=== PATIENT | female | born 1950 | race Caucasian/White ===

== ENCOUNTER 2016-04-14 16:39 | Inpatient (IN) | payer OTHER ==
[~2016-04-14] VITALS: Ht 170.2 cm; Wt 163.3 kg
[2016-04-14] MEDS ORDERED: HYDROmorphone HCL 2 MG/ML VL IV ONE (20:00)
[2016-04-14] MEDS ORDERED: ONDANSETRON HCL 4 MG/2 ML VIAL IV ONE (20:00)
[2016-04-14 21:30] LABS: Hemoglobin 13.7 g/dL (12.2-16.2); Mean Corpuscular Hemoglobin 30.7 pg (28.0-32.0); Mean Corpuscular Hgb Conc. 32.6 g/dL (32.0-36.0); Mean Corpuscular Volume 94.2 fL (80.0-100.0); Mean Platelet Volume 8.9 fL (7.4-10.4); Platelet Count (auto) 304 10^3/uL (140-450); Red Cell Distribution Width 13.9 % (11.6-16.0); SUSPECT VIEW TRANSMISSION; White Blood Cell 8.6 10^3/uL (4.4-10.8)
[2016-04-14 21:39] LABS: BUN/Creatinine Ratio 22.9; Calcium 9.1 mg/dL (8.5-10.1); Potassium 4.4 mmol/L (3.5-5.1)
[2016-04-14 21:41] LABS: INR 1.12 (0.9-1.15); Partial Thromboplastin Time 22.3 sec (22.64-33.71); Prothrombin Time 11.5 sec (9.37-12.3)
[2016-04-14 21:42] LABS: Bilirubin, Total 0.5 mg/dL (0.2-1.0); Total Protein 8.2 g/dL (6.4-8.2)
[2016-04-14 21:43] LABS: Metamyelocytes % 0; Myelocytes % 0; Promyelocytes % 0; Reactive Lymphocytes 0
[2016-04-14 21:46] LABS: B-Type Natriuretic Peptide 102.72 pg/mL (0-100)
[2016-04-14 21:47] LABS: Temperature: 22.7 C (20.0-25.0)
[2016-04-14 22:07] LABS: Platelet Estimate Adequate
[2016-04-14 22:08] LABS: Giant Platelets Few; Stomatocytes Few
[2016-04-14 22:18] LABS: Urine Bilirubin Negative (Negative); Urine Blood Negative /uL (Negative); Urine Color Yellow (Yellow); Urine Glucose Normal (Normal); Urine Hyaline Cast FEW /lpf (0 - 2); Urine Ketone Negative (Negative); Urine Mucus FEW (None Seen); Urine Nitrite Negative (Negative); Urine RBC 1 /hpf (0 - 4); Urine Squamous Epithelial Cell FEW /hpf (<5); Urine Urobilinogen Normal (Negative); Urine pH 5.5 (5.0-8.0)
[2016-04-14] MEDS ORDERED: IOHEXOL 350 MG/ML 100ML IJ ONE (23:00)
[2016-04-15] MEDS ORDERED: ACETAMINOPHEN 325 MG TAB PO PRN (01:15)
[2016-04-15] MEDS ORDERED: HYDROcodone-ACET 5/325MG TAB PO PRN (01:15)
[2016-04-15] MEDS ORDERED: ONDANSETRON HCL 4 MG/2 ML VIAL IV PRN (01:15)
[2016-04-15] MEDS ORDERED: ENOXAPARIN SOD 100 MG/1 ML SYRINGE SC ONE (01:15)
[2016-04-15] MEDS: MORPHINE SULF INJ 2 MG/ML SYRINGE 1ML IV PRN ×4 (01:41→16:02)
[2016-04-15 03:30] VITALS: BP 101/65
[2016-04-15] MEDS ORDERED: LEV25T GT (03:55)
[2016-04-15] MEDS ORDERED: FERR18TA2 PO (03:55)
[2016-04-15] MEDS ORDERED: MELO-41 PO (03:55)
[2016-04-15] MEDS ORDERED: DOCU-94 PO (03:55)
[2016-04-15] MEDS ORDERED: BUPRTAB PO (03:55)
[2016-04-15] MEDS ORDERED: HCTZ25T GT (03:55)
[2016-04-15] MEDS ORDERED: FAM20T PO (03:55)
[2016-04-15] MEDS ORDERED: VENL150C PO (03:55)
[2016-04-15 04:48] VITALS: BP 101/60
[2016-04-15] MEDS: buPROPion HCL 75 MG TAB PO SCH ×2 (06:32→18:19)
[2016-04-15] MEDS ORDERED: LEVOTHYROXINE SODIUM 25 MCG TAB PO SCH (07:00)
[2016-04-15 08:20] VITALS: BP 119/72
[2016-04-15] MEDS ORDERED: FAMOTIDINE 20 MG TAB PO SCH (10:00)
[2016-04-15] MEDS ORDERED: ENOXAPARIN SOD 40 MG/0.4 ML SYRINGE SC SCH (10:00)
[2016-04-15] MEDS ORDERED: HCTZ 25 MG TAB PO SCH (10:00)
[2016-04-15] MEDS ORDERED: amLODIPine BESYLATE 5 MG TAB PO SCH (10:00)
[2016-04-15 11:43] VITALS: BP 139/76
[2016-04-15 14:59] VITALS: BP 119/72
[2016-04-15 17:08] VITALS: BP 121/70
== END 2016-04-15 18:55 | DRG 689 ==
LOC: EDBD 16:39 → ER 16:43 → OVERFLOW 16:44 → WEST WING 04-15 02:30
PROVIDERS: ADMIT Nurse Practitioner; ATTEND Internal Medicine
DX: N39.0 Urinary tract infection, site not specified (principal); I21.3 ST elevation (STEMI) myocardial infarction of unspecified site; J44.1 Chronic obstructive pulmonary disease with (acute) exacerbation; E44.1 Mild protein-calorie malnutrition; I11.0 Hypertensive heart disease with heart failure; R53.1 Weakness; E03.9 Hypothyroidism, unspecified; E66.01 Morbid (severe) obesity due to excess calories; F32.9 Major depressive disorder, single episode, unspecified; F41.9 Anxiety disorder, unspecified; M79.1 Myalgia; M79.606 Pain in leg, unspecified; I25.2 Old myocardial infarction; Z98.890 Other specified postprocedural states; I11.9 Hypertensive heart disease without heart failure
CPT/HCPCS: 36415; 71010; 80053; 81001; 83880; 84484; 85007; 85027; 85379; 85610; 85730; 87081; 93005; 93970; 94761; 96374; 96375; J2405